=== PATIENT | male | born 1950 | race Caucasian/White ===

== ENCOUNTER → 2017-06-04 09:41 | Outpatient (CLI) | payer MEDICARE, SELFPAY ==
[2017-06-04 11:00] LABS: AST(SGOT) 19 U/L (15-37); Alanine Aminotransfer ALT/SGPT 28 U/L (16-61); Albumin, Serum 3.2 g/dL (3.2-5.0); Alkaline Phosphatase 76 U/L (45-117); Bilirubin, Direct 0.14 mg/dL (0.00-0.30); Cholesterol 175 mg/dL (200); Globulin 4.8 g/dL (2.2-4.2); High Density Lipoprotein 34 mg/dL; Triglycerides 107 mg/dL; Very Low Density Lipoprotein 21 mg/dL (5-40)
== END ==
PROVIDERS: Nurse Practitioner Family; Family Provider Family Medicine; PCP Family Medicine
DX: E78.5 Hyperlipidemia, unspecified (principal); Z79.899 Other long term (current) drug therapy
CPT/HCPCS: 36415; 80061; 80076

== ENCOUNTER → 2017-07-30 08:35 | Outpatient (CLI) | payer MEDICARE, SELFPAY ==
--- NOTE | 2017-07-30 08:43 | AAVD_ITS ---
Reason For Study: AAA Aorta Measurements Aorta Doppler Measurements Proximal aorta measures2.0 x 2.0cm. in cross- Peak systolic flow velocities within the proximal sectional axis. aorta measure 81.2 cm/sec. Proximal aorta measures2.1cm. in longitudinal Peak systolic flow velocities within the mid axis. aorta measure 50.2 cm/sec. Mid aorta measures2.3cm. in cross-sectional axis.Peak systolic flow velocities within the distal Mid aorta measures2.3cm. in longitudinal axis. aorta measure 70.2 cm/sec. Distal aorta measures2.8 x 2.7cm. in cross- sectional axis. Distal aorta measures2.7cm. in longitudinal axis. Procedure Aorta IVC Iliac vasculature or bypass grafts 10640. Technically difficult due to bowel gas. Iliac arteries not visualized. Interpretation Summary 1. No aortic aneurysm or stenosis. Ordering Physician: Conrad Lawrence Referring Physician: Victor Hugo Younger Performed By: Genna Diallo RVT
--- NOTE | 2017-07-30 08:43 | CDU_ITS ---
Rt. Velocities/BP Lt. Velocities/BP Prox CCA 80.3/23.5 cm/sec. Prox CCA 96.7/27.0 cm/sec. Mid CCA 87.4/22.9 cm/sec. Mid CCA 113.0/24.6 cm/sec. Dist CCA 87.9/29.9 cm/sec. Dist CCA 79.7/22.9 cm/sec. Prox ICA 84.4/24.2 cm/sec. Prox ICA 62.7/21.1 cm/sec. Mid ICA 120.0/39.3 cm/sec. Mid ICA 86.2/21.7 cm/sec. Dist ICA 125.0/45.2 cm/sec. Dist ICA 90.7/22.7 cm/sec. Rt. ICA/CCA = 1.4. Lt. ICA/CCA = .80. Prox ECA 95.4/16.9 cm/sec. Prox ECA 93.3/14.7 cm/sec. Rt. Vert. 51.0/16.4 cm/sec. Lt. Vert. 46.5/11.6 cm/sec. Right Extracranial There is intimal thickening but no significant atherosclerotic plaque noted in the right common carotid artery. There is heterogeneous, irregular atherosclerotic plaque noted in the right internal carotid artery. There is intimal thickening but no significant atherosclerotic plaque noted in the right external carotid artery. Antegrade flow is noted in the right vertebral artery. Left Extracranial There is heterogeneous, irregular atherosclerotic plaque noted in the left common carotid artery. There is heterogeneous, irregular atherosclerotic plaque noted in the left internal carotid artery. There is heterogeneous, irregular atherosclerotic plaque noted in the left external carotid artery. Antegrade flow is noted in the left vertebral artery. Procedure Carotid Duplex 52714. Exam performed in department. Interpretation Summary Mild (<50%) stenosis right extracranial internal carotid. Mild (<50%) stenosis left extracranial internal carotid. Flow within the vertebral arteries is antegrade bilaterally. Ordering Physician: Conrad Lawrence Referring Physician: Victor Hugo Younger Performed By: Genna Diallo RVT
== END ==
PROVIDERS: Family Provider Family Medicine; PCP Family Medicine; Visit Provider Surgery Vascular Surgery
DX: I71.4 Abdominal aortic aneurysm, without rupture (principal); I65.23 Occlusion and stenosis of bilateral carotid arteries; I25.2 Old myocardial infarction; I11.9 Hypertensive heart disease without heart failure; E78.00 Pure hypercholesterolemia, unspecified
CPT/HCPCS: 93880; 93978

== ENCOUNTER → 2017-12-17 09:31 | Outpatient (CLI) | payer MEDICARE, SELFPAY ==
[2017-12-17 11:52] LABS: AST(SGOT) 22 U/L (15-37); Alanine Aminotransfer ALT/SGPT 30 U/L (16-61); Albumin, Serum 3.3 g/dL (3.2-5.0); Alkaline Phosphatase 66 U/L (45-117); Bilirubin, Direct 0.12 mg/dL (0.00-0.30); Cholesterol 155 mg/dL (200); Globulin 4.3 g/dL (2.2-4.2); High Density Lipoprotein 41 mg/dL; Protein, Total 7.6 g/dL (6.4-8.2); Triglycerides 133 mg/dL; Very Low Density Lipoprotein 27 mg/dL (5-40)
== END ==
PROVIDERS: Family Provider Family Medicine; PCP Family Medicine; Visit Provider Internal Medicine Cardiovascular Disease
DX: I71.4 Abdominal aortic aneurysm, without rupture (principal); E78.5 Hyperlipidemia, unspecified; I25.10 Atherosclerotic heart disease of native coronary artery without angina pectoris; Z95.5 Presence of coronary angioplasty implant and graft
CPT/HCPCS: 36415; 80061; 80076

== ENCOUNTER → 2017-12-24 09:47 | Outpatient (CLI) | payer MEDICARE, SELFPAY ==
--- NOTE | 2017-12-24 18:29 | LEAS ---
Arterial Study - Arterial Study Arterial Study: Bilateral lower extremity noninvasive arterial exam with exercise Patient with peripheral vascular disease Right lower extremity The right low thigh index is 0.99 while the calf index is 0.86 the right PT and DP ankle-brachial indices at rest are 0.91 and 0.93 respectively with a digital index artificially elevated at 0.95 Doppler waveforms are triphasic at both posterior tibial and dorsalis pedis levels. Volume pulse recordings do not demonstrate amplification the calf and generally are depressed throughout. Digital waveforms are adequately maintained. With exercise the right MYRA goes from resting 0.932 immediately after exercise at 0.56 there is incomplete recovery by 9 minutes Left lower extremity The left low thigh index is 1.05. The calf index is 0.84. The left PT and DP ankle-brachial indices at rest are 0.89 and 0.85 respectively with a digital index of 0.83. The left posterior tibial and dorsalis pedis Doppler waveforms are biphasic. The volume pulse recordings generally are depressed throughout the low thigh calf ankle level and fairly well maintained at the digital level. With exercise left MYRA goes from resting 0.892 immediately after exercise at 0.71 there is recovery essentially by 3 minutes Impression Findings are consistent with clinically significant bilateral lower extremity arterial occlusive disease in the range of vascular claudication. The exact level of his disease cannot be determined on the current examination though there is a suggestion of bilateral superficial femoral artery occlusive disease. Findings might additionally suggest infrageniculate disease on the left. Clinical correlation would be appropriate. Chad Hayward M.D., F.A.C.S.
== END ==
PROVIDERS: Family Provider Family Medicine; PCP Family Medicine; Visit Provider Internal Medicine Cardiovascular Disease
DX: Z73.9 Problem related to life management difficulty, unspecified (principal)
CPT/HCPCS: 93924

== ENCOUNTER → 2018-06-26 12:40 | Outpatient (CLI) | payer MEDICARE, SELFPAY ==
[2018-06-06 11:58] VITALS: BMI 30.5
--- NOTE | 2018-06-26 12:42 | ECHOCS_ITS ---
Reason For Study: CAD/ASHD Procedure This was a 2D Doppler, Color Flow transthoracic echocardiogram. The study was technically difficult. Exam performed in department. Left Ventricle Normal size and thickness. The estimated ejection fraction is 65 %. Stage 1 diastolic dysfunction. Septal motion consistent with IVCD. No regional wall motion abnormalities noted. Right Ventricle Normal size and thickness. Normal systolic function. Atria Normal left atrium. Normal right atrium. Normal atrial septum. Bubble contrast study negative for right to left interatrial shunt. Mitral Valve The mitral valve is structurally normal. No prolapse or stenosis seen. Tricuspid Valve Normal tricuspid valve. Unable to estimate RV systolic pressure due to inadequate jet, pulmonary artery pressure probably normal. Aortic Valve Normal aortic valve. Trisinus/trileaflet aortic valve. Pulmonic Valve Normal pulmonic valve. Great Vessels Normal aortic root. Normal arch. Normal inferior vena cava. Inferior vena cava collapse with sniff. Pericardium/Pleural No pericardial effusion. Medication 22 gauge I.V. with prn adaptor inserted into right arm. Diluted definity 4ml given slow IV push to enhance endocardial definition. Performed a rapid injection of agitated mix of 9 cc saline and 1cc air to assess for atrial septal defect. MMode/2D Measurements & Calculations LVIDd: 3.9 cm IVSd: 1.3 cm Ao root diam: 3.1 cm LVIDs: 3.0 cm LVPWd: 1.1 cm RVDd: 3.3 cm FS: 24.2 % LAV(MOD-bp): 39.7 ml LVAd ap4: 30.6 cm2 SV(MOD-sp4): 54.9 ml LAV(MOD-bp) Indexed: 18.3 ml/m2 EDV(MOD-sp4): 97.5 ml LAV(MOD-sp2): 52.4 ml EDV(sp4-el): 98.4 ml LAV(MOD-sp4): 30.5 ml LVAs ap4: 18.3 cm2 ESV(MOD-sp4): 42.7 ml ESV(sp4-el): 41.8 ml EF(MOD-sp4): 56.2 % EF(sp4-el): 57.5 % SV(sp4-el): 56.6 ml LA A4 area: 13.5 cm2 LA dimension(2D): 2.8 cm RA A4 area: 13.4 cm2 Time Measurements MV dec time: 0.28 sec Doppler Measurements & Calculations MV E max linus: 54.8 cm/sec Lat Peak E' Linus: 8.1 cm/sec Med Peak E' Linus: 5.2 cm/sec MV A max linus: 80.8 cm/sec E/E' lat: 6.7 E/E' med: 10.6 MV E/A: 0.68 Ao V2 max: 114.1 cm/sec LV V1 max: 95.1 cm/sec PA V2 max: 92.0 cm/sec Ao max P.2 mmHg LV V1 max P.6 mmHg Interpretation Summary The estimated ejection fraction is 65 %. Stage 1 diastolic dysfunction. Bubble contrast study negative for right to left interatrial shunt. The study was technically difficult. There is no comparison study available. Contrast injection was performed. Ordering Physician: Kristofer Keane Referring Physician: JESSICA COLBERT Performed By: Jayda Krishnan RDCS
[2018-06-26 15:19] LABS: AST(SGOT) 14 U/L (15-37); Alanine Aminotransfer ALT/SGPT 18 U/L (16-61); Albumin, Serum 3.3 g/dL (3.2-5.0); Alkaline Phosphatase 70 U/L (45-117); Bilirubin, Direct 0.16 mg/dL (0.00-0.30); Cholesterol 92 mg/dL (200); Globulin 4.9 g/dL (2.2-4.2); High Density Lipoprotein 35 mg/dL; Protein, Total 8.2 g/dL (6.4-8.2); Triglycerides 74 mg/dL; Very Low Density Lipoprotein 15 mg/dL (5-40)
== END ==
PROVIDERS: Family Provider Family Medicine; PCP Family Medicine; Referring Provider Internal Medicine Cardiovascular Disease; Visit Provider Internal Medicine Cardiovascular Disease
DX: E78.5 Hyperlipidemia, unspecified (principal); I71.4 Abdominal aortic aneurysm, without rupture
CPT/HCPCS: 36415; 80061; 80076; 93306; Q9957; A4216; C8929

== ENCOUNTER → 2018-07-03 10:23 | Outpatient (CLI) | payer MEDICARE, SELFPAY ==
[2018-06-06 11:58] VITALS: BMI 30.5
--- NOTE | 2018-07-03 10:26 | STEWCON_ITS ---
Reason For Study: CAD Stress Results Protocol: Magan Protocol Maximum Predicted HR: 152 bpm Target HR: 129 bpm % Maximum Predicted HR: 95 % DurationHeart Rate Stage (mm:ss) (bpm) BP Comment Baseline 95 160/82No Chest Pain; Diluted Definity 8 ML Given Magan Protocol Stage I 3:00 125 158/80No Chest Pain; Mild to Moderate Dyspnea Magan Protocol Stage II 3:00 144 200/80No Chest Pain; Severe Dyspnea Magan Protocol Stage III 0:01 144 / No Chest Pain; Severe Dyspnea Recovery 100 136/70No Chest Pain; No Dyspnea Stress Duration: 6:01 mm:ss Maximum Stress HR: 144 bpm METS: 7 Baseline Echocardiogram Findings The estimated ejection fraction is 65 %. Stress Echo Wall motion Data Resting WM Intermediate WM Stress WM Resting Wall Motion Wall Motion Stress No regional wall motion Basal anteroseptal: Mildly abnormalities noted. hypokinetic. Mid-Lateral : Mildly hypokinetic. Mid-anteroseptal : Mildly hypokinetic. EKG Data Normal intervals are noted. The patient exercised according to the regular Magan protocol for a total duration of 6:01. The maximum heart rate attained was 144 beats per minute. This was 94% of maximum predicted heart rate. The patient exercised into stage 3 of the Magan protocol. During stress, there were no ST or T wave changes noted to suggest ischemia. No clinical angina was noted. Interpretation Summary The estimated ejection fraction is 65 %. Basal anteroseptal: Mildly hypokinetic Mid-Lateral : Mildly hypokinetic Mid-anteroseptal : Mildly hypokinetic Abnormal, adequate, treadmill echocardiogram. Positive for ischemia by echocardiographic criteria. No anginal symptoms noted. Rare PVCs noted. Hypertensive blood pressure response to exercise. Average exercise capacity for age. Test terminated due to severe dyspnea. The patient appeared to develop mid anteroseptal and lateral hypokinesis at peak exercise. Poor echo windows requiring Definity agent. Final LVEF of 55%. No complications. The study was technically difficult. Contrast injection was performed. Ordering Physician: Kristofer Keane Referring Physician: Victor Hugo Younger Performed By: Colton Cisneros RCS
--- NOTE | 2018-07-03 11:35 | RAD_ITS ---
STUDY: X-RAY CHEST REASON FOR EXAM: Male, 68 years old. Abnormal stress test. TECHNIQUE: PA and lateral chest COMPARISON: None. FINDINGS: Pulmonary hyperlucency and hyperinflation with hemidiaphragm flattening consistent with COPD. Lungs acutely clear. Normal cardiomediastinal silhouette, edson and pleural margins. No acute osseous or upper abdominal process. RAD/Chest PA and Lateral IMPRESSION: Cardiopulmonary features of COPD without acute superimposed cardiopulmonary process. Electronically Signed: Oscar Santos MD at 18:26 EST Tel , Service support ,
[2018-07-03 13:49] LABS: Hematocrit 46.2 % (40-54); Hemoglobin 15.3 g/dl (13.0-16.5); Mean Corp Hgb Conc 33.1 g/gl (32-36); Mean Corpuscular Hgb 31.8 pg (27.0-32.0); Mean Platelet Vol. 11.5 fl (6.2-12.0); Platelet Count 181 K/mm3 (150-450); RBC Distribution Width CV 13.2 % (11.6-14.6); RBC Distribution Width SD 44.7 fl (35.1-43.9); Red Blood Count 4.81 M/mm3 (4.6-6.2); White Blood Count 8.2 K/mm3 (4.4-11.0)
[2018-07-03 13:51] LABS: Scan Indicated on CBC? Y/N NO
[2018-07-03 13:53] LABS: International Normalized Ratio 1.1; Prothrombin Time (Protime)PT. 14.3 SECONDS (11.7-14.9)
[2018-07-03 13:54] LABS: Partial Thromboplast Time 35.1 Seconds (24.1-36.2)
[2018-07-03 14:16] LABS: BUN 12 mg/dL (7-18); BUN/Creat Ratio 12.3 RATIO (10-20); Calcium,Total 8.8 mg/dL (8.5-10.1); Creatinine, Serum 0.98 mg/dL (0.70-1.30); EST Glomerular Filtration Rate 81 mL/min (>60); Est Glom Filt Rate - Afr Amer 98 mL/min (>60); Glucose 119 mg/dL (74-106); Sodium Level 139 mmol/L (136-145)
[2018-07-03 14:17] LABS: Anion Gap 9 (5-15); Chloride 108 mmol/L (98-107); Potassium 3.5 mmol/L (3.5-5.1)
== END ==
PROVIDERS: Family Provider Family Medicine; PCP Family Medicine; Referring Provider Internal Medicine Cardiovascular Disease; Visit Provider Internal Medicine Cardiovascular Disease
DX: I25.10 Atherosclerotic heart disease of native coronary artery without angina pectoris (principal); R94.39 Abnormal result of other cardiovascular function study; E78.5 Hyperlipidemia, unspecified; I21.4 Non-ST elevation (NSTEMI) myocardial infarction; I71.4 Abdominal aortic aneurysm, without rupture; F17.200 Nicotine dependence, unspecified, uncomplicated
CPT/HCPCS: 36415; 71046; 80048; 85027; 85610; 85730; 93017; 93350; Q9957; A4216; C8928

== ENCOUNTER → 2019-01-22 | Outpatient (CLI) | payer MEDICARE, SELFPAY ==
[2019-01-09 13:07] VITALS: BMI 30.2
--- NOTE | 2019-01-22 10:00 | US_ITS ---
HISTORY: Abdominal aortic aneurysm. 26 images. Comparison study is a CT scan of the abdomen and pelvis from June 28, 2016. On the previous study, just barely above the level of the origin of the DAWIT, the maximal diameter of the infrarenal abdominal aortic aneurysm was 3.3 x 3.3 cm. Findings: Flow is present within the abdominal aorta. Maximal luminal diameter measured to the abdominal aorta on the current study is 2.8 x 2.8 cm. If the cursors were moved out slightly larger, perhaps to the outer zamora of the calcific plaque of the abdominal aortic aneurysm, I measure the outer diameter of the abdominal aortic aneurysm on today's study to be 3.8 x 3.6 cm. This may be slightly larger than the previous study of June 28. Common iliac artery diameter is normal. Diameter of the abdominal aorta above the aneurysm is normal. US/Aorta IMPRESSION: 3.8 x 3.6 cm infrarenal abdominal aortic aneurysm slightly larger than June 28, 2016.. at 2247 Reported and signed by: Howard Anders MD Electronically Signed: Howard Anders MD at 22:46 EDT Tel , Service support ,
== END | disposition home or self-care (01) ==
LOC: US 09:52
PROVIDERS: Family Provider Family Medicine; PCP Family Medicine; Referring Provider Surgery; Visit Provider Surgery
DX: I71.4 Abdominal aortic aneurysm, without rupture (principal)
CPT/HCPCS: 76775

== ENCOUNTER → 2021-02-18 08:05 | Outpatient (CLI) | payer MEDICARE, SELFPAY ==
[2021-02-18 09:59] LABS: ALB/GLOB Ratio 0.7 RATIO (0.9-2.4); AST(SGOT) 19 U/L (15-37); Alanine Aminotransfer ALT/SGPT 24 U/L (16-61); Albumin, Serum 3.4 g/dL (3.2-5.0); Alkaline Phosphatase 72 U/L (45-117); Anion Gap 6 (5-15); BUN 14 mg/dL (7-18); BUN/Creat Ratio 14.2 RATIO (10-20); Chloride 110 mmol/L (98-107); Cholesterol 80 mg/dL (200); Creatinine, Serum 0.99 mg/dL (0.70-1.30); EST Glomerular Filtration Rate 80 mL/min (>60); Est Glom Filt Rate - Afr Amer 96 mL/min (>60); Globulin 4.7 g/dL (2.2-4.2); Glucose 140 mg/dL (74-106); High Density Lipoprotein 37 mg/dL; Potassium 3.9 mmol/L (3.5-5.1); Protein, Total 8.1 g/dL (6.4-8.2); Sodium Level 144 mmol/L (136-145); Triglycerides 74 mg/dL; Very Low Density Lipoprotein 15 mg/dL (5-40)
== END ==
PROVIDERS: PCP Family Medicine; Referring Provider Nurse Practitioner Family; Visit Provider Nurse Practitioner Family
DX: E78.00 Pure hypercholesterolemia, unspecified (principal); E78.5 Hyperlipidemia, unspecified; I25.10 Atherosclerotic heart disease of native coronary artery without angina pectoris; I10 Essential (primary) hypertension; I73.9 Peripheral vascular disease, unspecified; F17.200 Nicotine dependence, unspecified, uncomplicated; Z95.5 Presence of coronary angioplasty implant and graft
CPT/HCPCS: 36415; 80053; 80061

== ENCOUNTER → 2022-03-10 | Outpatient (CLI) | payer MEDICARE, SELFPAY ==
--- NOTE | 2022-03-10 08:42 | AAVD_ITS ---
Reason For Study: AAA Aorta Measurements Aorta Doppler Measurements Proximal aorta measures1.79 x 1.76cm. in cross- Peak systolic flow velocities within the proximal sectional axis. aorta measure 40.8 cm/sec. Proximal aorta measures1.77cm. in longitudinal Peak systolic flow velocities within the mid aorta axis. measure 42.7 cm/sec. Mid aorta measures3.25 x 3.58cm. in cross- Peak systolic flow velocities within the distal sectional axis. aorta measure 33.3 cm/sec. Mid aorta measures3.12cm. in longitudinal axis. Distal aorta measures1.77 x 1.79cm. in cross- sectional axis. Distal aorta measures2.07cm. in longitudinal axis. Left Iliac Artery Left iliac artery measures .92 x .94 cm. in the cross-sectional axis. Left iliac artery measures 0.86 cm. in the longitudinal axis. Peak systolic velocity in the left iliac artery measures 74.3 cm/sec. Right Iliac Artery Right iliac artery measures 0.99 x .99 cm. in the cross-sectional axis. Right iliac artery measures 1.08 cm. in the longitudinal axis. Peak systolic velocity in the right iliac artery measures 58.9 cm/sec. Procedure Aorta IVC Iliac vasculature or bypass grafts [id number]. Exam performed in department. VL/Abd Aortic/IVC Duplex scan Interpretation Summary Aorta patent, 3.58 cm aneurysm present Bilateral iliac arteries patent, normal caliber Ordering Physician: Kip Womack Referring Physician: Victor Hugo Younger Performed By: Sahra Gage, KALACS, RVT
[2022-03-10 09:47] LABS: AST(SGOT) 13 U/L (15-37); Alanine Aminotransfer ALT/SGPT 25 U/L (16-61); Albumin, Serum 3.4 g/dL (3.2-5.0); Alkaline Phosphatase 77 U/L (45-117); Bilirubin, Direct 0.27 mg/dL (0.00-0.30); Cholesterol 89 mg/dL (200); Globulin 4.5 g/dL (2.2-4.2); High Density Lipoprotein 35 mg/dL; Protein, Total 7.9 g/dL (6.4-8.2); Triglycerides 147 mg/dL; Very Low Density Lipoprotein 29 mg/dL (5-40)
== END | disposition home or self-care (01) ==
LOC: CVS 08:27
PROVIDERS: PCP Family Medicine; Referring Provider Internal Medicine Cardiovascular Disease; Visit Provider Internal Medicine Cardiovascular Disease
DX: I71.40 Abdominal aortic aneurysm, without rupture, unspecified (principal); I73.9 Peripheral vascular disease, unspecified; I25.10 Atherosclerotic heart disease of native coronary artery without angina pectoris; E78.5 Hyperlipidemia, unspecified; F17.200 Nicotine dependence, unspecified, uncomplicated; Z95.5 Presence of coronary angioplasty implant and graft; R09.89 Other specified symptoms and signs involving the circulatory and respiratory systems
CPT/HCPCS: 36415; 80061; 80076; 93978

== ENCOUNTER → 2023-03-12 | Outpatient (CLI) | payer MEDICARE, SELFPAY ==
--- NOTE | 2023-03-12 08:41 | AAVD_ITS ---
Reason For Study: AAA Aorta Measurements Aorta Doppler Measurements Proximal aorta measures1.94 x 1.94cm. in cross- Peak systolic flow velocities within the proximal sectional axis. aorta measure 42.9 cm/sec. Proximal aorta measures1.96cm. in longitudinal Peak systolic flow velocities within the mid aorta axis. measure 33 cm/sec. Mid aorta measures3.26 x 3.33cm. in cross- Peak systolic flow velocities within the distal sectional axis. aorta measure 45.3 cm/sec. Mid aorta measures3.31cm. in longitudinal axis. Distal aorta measures1.40 x 1.44cm. in cross- sectional axis. Distal aorta measures1.52cm. in longitudinal axis. Left Iliac Artery Left iliac artery measures 0.74 x 0.71 cm. in the cross-sectional axis. Left iliac artery measures 0.76 cm. in the longitudinal axis. Peak systolic velocity in the left iliac artery measures 98.6 cm/sec. Right Iliac Artery Right iliac artery measures 0.65 x 0.68 cm. in the cross-sectional axis. Right iliac artery measures 0.67 cm. in the longitudinal axis. Peak systolic velocity in the right iliac artery measures 118.3 cm/sec. Procedure Aorta IVC Iliac vasculature or bypass grafts [id number]. Exam performed in department. VL/Abd Aortic/IVC Duplex scan Interpretation Summary Aorta patent with 3.33 cm aneurysm present Bilateral iliac arteries patent, normal caliber Ordering Physician: Bebe Giang Referring Physician: Victor Hugo Younger Performed By: Tamica Munson RVT
[2023-03-12 10:14] LABS: AST(SGOT) 15 U/L (15-37); Alanine Aminotransfer ALT/SGPT 21 U/L (16-61); Albumin, Serum 3.3 g/dL (3.2-5.0); Alkaline Phosphatase 85 U/L (45-117); Bilirubin, Direct 0.22 mg/dL (0.00-0.30); Cholesterol 93 mg/dL (200); Globulin 4.6 g/dL (2.2-4.2); High Density Lipoprotein 36 mg/dL; Protein, Total 7.9 g/dL (6.4-8.2); Triglycerides 136 mg/dL; Very Low Density Lipoprotein 27 mg/dL (5-40)
== END | disposition home or self-care (01) ==
PROVIDERS: PCP Family Medicine; Referring Provider Nurse Practitioner Gerontology; Visit Provider Nurse Practitioner Gerontology
DX: E78.00 Pure hypercholesterolemia, unspecified (principal); I71.40 Abdominal aortic aneurysm, without rupture, unspecified; I10 Essential (primary) hypertension
CPT/HCPCS: 36415; 80061; 80076; 93978

== ENCOUNTER → 2024-06-26 | Outpatient (CLI) | payer MEDICARE, SELFPAY ==
[2024-06-26 10:38] LABS: AST(SGOT) 20 U/L (<=37); Alanine Aminotransfer ALT/SGPT 20 U/L (<=46); Albumin, Serum 4.1 g/dL (3.4-4.8); Alkaline Phosphatase 110 U/L (40-129); Protein, Total 8.1 g/dL (5.9-8.4); Total Bilirubin 0.68 mg/dL (0.00-1.30)
[2024-06-26 11:14] LABS: Cholesterol 91 mg/dL (<=200); High Density Lipoprotein 44 mg/dL; Low Density Lipoprotein Calc. 30 mg/dL; Triglycerides 88 mg/dL; Very Low Density Lipoprotein 18 mg/dL (5-40); cholesterol:hdl ratio screen 2.07
== END | disposition home or self-care (01) ==
LOC: LAB 08:46
PROVIDERS: PCP Family Medicine; Referring Provider Nurse Practitioner Family; Visit Provider Nurse Practitioner Family
DX: E78.00 Pure hypercholesterolemia, unspecified (principal)
CPT/HCPCS: 36415; 80061; 80076

== ENCOUNTER 2025-03-09 14:08 | Outpatient (RCR) | payer MEDICARE, SELFPAY | END 2025-03-29 23:59 | LOC: NS 14:08 | PROVIDERS: PCP Family Medicine; Referring Provider Family Medicine; Visit Provider Family Medicine | DX: Z71.3 Dietary counseling and surveillance (principal); E11.9 Type 2 diabetes mellitus without complications | CPT/HCPCS: 97802 ==